=== PATIENT | male | born 1955 | race Caucasian/White ===

== ENCOUNTER → 2017-03-11 | Outpatient (CLI) | payer OTHER ==
[~2017-03-11] MED LIST: AMOXI/CLAVULANA1 TAB PO; CEFEPIME2 GM/100 M IV; COLACE100 MG PO; DIFLUCAN200 MG PO; LANTUS100 U/ML SC; LEVAQUIN750 M1 PO; LEVOFLOXACIN500 MG PO; METRONIDAZOLE500 M1 PO; NOVOLOG FLEX100 U/ML SC; PRAVASTATIN SOD40 MG PO; PROBIOTIC1 EAC1 PO; PROBIOTICS; VANCO-0.9%1.25 GM/25 IV; ZOCOR20 MG PO; ZOSYN 3 GM-0.371 PD1 IV
== END | disposition home or self-care (01) ==
LOC: WOUNDCARE 13:34
DX: E11.621 Type 2 diabetes mellitus with foot ulcer (principal); L97.512 Non-pressure chronic ulcer of other part of right foot with fat layer exposed; I10 Essential (primary) hypertension; Z87.891 Personal history of nicotine dependence; Z86.14 Personal history of Methicillin resistant Staphylococcus aureus infection

== ENCOUNTER → 2017-03-20 | Outpatient (CLI) | payer OTHER | END | disposition home or self-care (01) | LOC: WOUNDCARE 01:54 | DX: E11.621 Type 2 diabetes mellitus with foot ulcer (principal); L97.512 Non-pressure chronic ulcer of other part of right foot with fat layer exposed; I10 Essential (primary) hypertension; Z86.14 Personal history of Methicillin resistant Staphylococcus aureus infection; Z87.891 Personal history of nicotine dependence ==

== ENCOUNTER → 2017-03-27 | Outpatient (CLI) | payer OTHER | END | disposition home or self-care (01) | LOC: WOUNDCARE 11:21 | DX: E11.621 Type 2 diabetes mellitus with foot ulcer (principal); L97.512 Non-pressure chronic ulcer of other part of right foot with fat layer exposed; I10 Essential (primary) hypertension; Z86.14 Personal history of Methicillin resistant Staphylococcus aureus infection; Z87.891 Personal history of nicotine dependence ==

== ENCOUNTER → 2017-04-10 | Outpatient (CLI) | payer OTHER | END | disposition home or self-care (01) | LOC: WOUNDCARE 01:52 | DX: E11.621 Type 2 diabetes mellitus with foot ulcer (principal); L97.512 Non-pressure chronic ulcer of other part of right foot with fat layer exposed; I10 Essential (primary) hypertension; Z87.891 Personal history of nicotine dependence ==

== ENCOUNTER → 2017-05-20 | Outpatient (CLI) | payer OTHER | END | disposition home or self-care (01) | LOC: WOUNDCARE 04:09 | DX: E11.621 Type 2 diabetes mellitus with foot ulcer (principal); L97.511 Non-pressure chronic ulcer of other part of right foot limited to breakdown of skin; I10 Essential (primary) hypertension; E11.9 Type 2 diabetes mellitus without complications; Z86.14 Personal history of Methicillin resistant Staphylococcus aureus infection; Z87.891 Personal history of nicotine dependence ==

== ENCOUNTER → 2017-05-29 | Outpatient (CLI) | payer OTHER | END | disposition home or self-care (01) | LOC: WOUNDCARE 02:03 | DX: E11.621 Type 2 diabetes mellitus with foot ulcer (principal); L97.511 Non-pressure chronic ulcer of other part of right foot limited to breakdown of skin; I10 Essential (primary) hypertension; Z86.14 Personal history of Methicillin resistant Staphylococcus aureus infection; Z87.891 Personal history of nicotine dependence ==

== ENCOUNTER → 2017-06-12 | Outpatient (CLI) | payer OTHER | END | disposition home or self-care (01) | LOC: WOUNDCARE 08:48 | DX: E10.621 Type 1 diabetes mellitus with foot ulcer (principal); L97.512 Non-pressure chronic ulcer of other part of right foot with fat layer exposed; I10 Essential (primary) hypertension; Z86.14 Personal history of Methicillin resistant Staphylococcus aureus infection; Z87.891 Personal history of nicotine dependence ==

== ENCOUNTER → 2017-06-19 | Outpatient (CLI) | payer OTHER | END | disposition home or self-care (01) | LOC: WOUNDCARE 03:39 | DX: E11.621 Type 2 diabetes mellitus with foot ulcer (principal); L97.511 Non-pressure chronic ulcer of other part of right foot limited to breakdown of skin; I10 Essential (primary) hypertension; Z86.14 Personal history of Methicillin resistant Staphylococcus aureus infection; Z87.891 Personal history of nicotine dependence ==

== ENCOUNTER → 2017-07-03 | Outpatient (CLI) | payer OTHER | END | disposition home or self-care (01) | LOC: WOUNDCARE 02:42 | DX: E10.621 Type 1 diabetes mellitus with foot ulcer (principal); L97.512 Non-pressure chronic ulcer of other part of right foot with fat layer exposed; I10 Essential (primary) hypertension; Z87.891 Personal history of nicotine dependence ==

== ENCOUNTER → 2017-07-17 | Outpatient (CLI) | payer OTHER | END | disposition home or self-care (01) | LOC: WOUNDCARE 02:14 | DX: E10.621 Type 1 diabetes mellitus with foot ulcer (principal); L97.511 Non-pressure chronic ulcer of other part of right foot limited to breakdown of skin; I10 Essential (primary) hypertension; Z87.891 Personal history of nicotine dependence ==

== ENCOUNTER → 2017-07-31 | Outpatient (CLI) | payer OTHER | END | disposition home or self-care (01) | LOC: WOUNDCARE 01:40 | DX: E10.621 Type 1 diabetes mellitus with foot ulcer (principal); L97.512 Non-pressure chronic ulcer of other part of right foot with fat layer exposed; I10 Essential (primary) hypertension; Z87.891 Personal history of nicotine dependence ==

== ENCOUNTER → 2017-08-07 | Outpatient (CLI) | payer OTHER | END | disposition home or self-care (01) | LOC: WOUNDCARE 00:24 | DX: E10.621 Type 1 diabetes mellitus with foot ulcer (principal); L97.512 Non-pressure chronic ulcer of other part of right foot with fat layer exposed; I10 Essential (primary) hypertension; Z87.891 Personal history of nicotine dependence ==

== ENCOUNTER → 2017-08-14 | Outpatient (CLI) | payer OTHER | END | disposition home or self-care (01) | LOC: WOUNDCARE 04:39 | DX: E10.621 Type 1 diabetes mellitus with foot ulcer (principal); L97.511 Non-pressure chronic ulcer of other part of right foot limited to breakdown of skin; I10 Essential (primary) hypertension; Z87.891 Personal history of nicotine dependence ==

== ENCOUNTER → 2017-08-26 | Outpatient (CLI) | payer OTHER | END | disposition home or self-care (01) | LOC: WOUNDCARE 02:39 | DX: E11.621 Type 2 diabetes mellitus with foot ulcer (principal); L97.512 Non-pressure chronic ulcer of other part of right foot with fat layer exposed; I10 Essential (primary) hypertension; Z87.891 Personal history of nicotine dependence ==

== ENCOUNTER → 2017-09-09 | Outpatient (CLI) | payer OTHER | END | disposition home or self-care (01) | LOC: WOUNDCARE 01:26 | DX: E10.621 Type 1 diabetes mellitus with foot ulcer (principal); L97.511 Non-pressure chronic ulcer of other part of right foot limited to breakdown of skin; I10 Essential (primary) hypertension; Z87.891 Personal history of nicotine dependence ==

== ENCOUNTER → 2017-09-16 | Outpatient (CLI) | payer OTHER | END | disposition home or self-care (01) | LOC: WOUNDCARE 04:35 | DX: E10.621 Type 1 diabetes mellitus with foot ulcer (principal); L97.512 Non-pressure chronic ulcer of other part of right foot with fat layer exposed; I10 Essential (primary) hypertension; Z87.891 Personal history of nicotine dependence ==

== ENCOUNTER → 2017-09-23 | Outpatient (CLI) | payer OTHER | END | disposition home or self-care (01) | LOC: WOUNDCARE 04:37 | DX: E11.621 Type 2 diabetes mellitus with foot ulcer (principal); L97.512 Non-pressure chronic ulcer of other part of right foot with fat layer exposed; I10 Essential (primary) hypertension; Z87.891 Personal history of nicotine dependence ==

== ENCOUNTER → 2017-09-30 | Outpatient (CLI) | payer OTHER | END | disposition home or self-care (01) | LOC: WOUNDCARE 00:32 | DX: E11.621 Type 2 diabetes mellitus with foot ulcer (principal); L97.511 Non-pressure chronic ulcer of other part of right foot limited to breakdown of skin; Z87.891 Personal history of nicotine dependence ==

== ENCOUNTER → 2017-10-07 | Outpatient (CLI) | payer OTHER | END | disposition home or self-care (01) | LOC: WOUNDCARE 04:43 | DX: E11.621 Type 2 diabetes mellitus with foot ulcer (principal); L97.511 Non-pressure chronic ulcer of other part of right foot limited to breakdown of skin; I10 Essential (primary) hypertension; Z87.891 Personal history of nicotine dependence ==

== ENCOUNTER → 2017-10-14 | Outpatient (CLI) | payer OTHER | END | disposition home or self-care (01) | LOC: WOUNDCARE 00:12 | DX: E10.621 Type 1 diabetes mellitus with foot ulcer (principal); L97.512 Non-pressure chronic ulcer of other part of right foot with fat layer exposed; I10 Essential (primary) hypertension; Z87.891 Personal history of nicotine dependence ==

== ENCOUNTER → 2017-10-21 | Outpatient (CLI) | payer OTHER | END | disposition home or self-care (01) | LOC: WOUNDCARE 03:19 | DX: E11.621 Type 2 diabetes mellitus with foot ulcer (principal); L97.512 Non-pressure chronic ulcer of other part of right foot with fat layer exposed; I10 Essential (primary) hypertension; Z87.891 Personal history of nicotine dependence ==

== ENCOUNTER → 2017-10-28 | Outpatient (CLI) | payer OTHER | END | disposition home or self-care (01) | LOC: WOUNDCARE 03:32 | DX: E10.621 Type 1 diabetes mellitus with foot ulcer (principal); L98.498 Non-pressure chronic ulcer of skin of other sites with other specified severity; L84 Corns and callosities; I10 Essential (primary) hypertension; Z87.891 Personal history of nicotine dependence ==

== ENCOUNTER 2022-09-10 14:21 | Emergency (ER) | payer MEDICARE ==
[~2022-09-10] VITALS: Ht 185.4 cm; Wt 142.9 kg
[2022-09-10 15:05] LABS: BASO % 0.4 % (0.0-1.0); EOS # 0.2 10*3/uL (0.0-0.4); EOS % 2.8 % (1.0-4.0); HEMATOCRIT 41.6 % (42.0-52.0); LYMPH # 1.2 10*3/uL (1.3-4.4); LYMPH % 18.1 % (27.0-41.0); MEAN CELL VOLUME 91.6 fl (80.0-94.0); MEAN CORPUSCULAR HGB 29.7 pg (27.0-31.0); MEAN CORPUSCULAR HGB CONC 32.5 g/dl (33.0-37.0); MONO # 0.7 10*3/uL (0.1-1.0); MONO % 10.9 % (3.0-9.0); NEUT # 4.6 10*3/uL (2.3-7.9); NEUT % 67.7 % (47.0-73.0); PLATELET COUNT AUTOMATED 203 10*3/uL (130-400); RED BLOOD COUNT 4.54 10*6/uL (4.50-5.90); RED CELL DISTRI WIDTH 13.6 % (0-14.5); WHITE BLOOD COUNT 6.8 10*3/uL (4.8-10.8)
[2022-09-10 15:29] LABS: ALKALINE PHOSPHATASE 97 U/L (46-116); BUN 13 mg/dl (9-23); CHLORIDE 98 mmol/L (98-107); POTASSIUM 4.3 mmol/L (3.4-5.1); SGPT/ALT 23 U/L (10-49); TOTAL PROTEIN 6.8 gm/dL (6.0-8.0)
[2022-09-10] MEDS ORDERED: K-TAB10 MEQ PO (16:37)
[2022-09-10] MEDS ORDERED: LASIX40 MG PO (16:37)
[2022-09-10] MEDS ORDERED: CEPHALEXIN500 M1 PO (16:37)
== END 2022-09-10 16:43 | disposition home or self-care (01) ==
LOC: ED 14:21
PROVIDERS: Internal Medicine
DX: R60.0 Localized edema (principal); I50.9 Heart failure, unspecified; E11.9 Type 2 diabetes mellitus without complications; Z98.890 Other specified postprocedural states; F17.210 Nicotine dependence, cigarettes, uncomplicated

== ENCOUNTER 2022-10-30 06:51 | Inpatient (IN) | payer MEDICARE ==
[2022-10-30] VITALS (7 sets, daily range): BP systolic 132–142; BP diastolic 70–100
[~2022-10-30] VITALS: Ht 185.4 cm; Wt 143.1 kg
[~2022-10-30 06:51] MED LIST changes: +CEPHALEXIN500 M1 PO; +K-TAB10 MEQ PO; +LASIX40 MG PO
[2022-10-30 07:26] LABS: BASO % 0.5 % (0.0-1.0); EOS # 0.2 10*3/uL (0.0-0.4); HEMATOCRIT 42.2 % (42.0-52.0); LYMPH # 1.4 10*3/uL (1.3-4.4); LYMPH % 16.5 % (27.0-41.0); MEAN CELL VOLUME 89.2 fl (80.0-94.0); MEAN CORPUSCULAR HGB 29.2 pg (27.0-31.0); MEAN CORPUSCULAR HGB CONC 32.7 g/dl (33.0-37.0); MEAN PLATELET VOLUME 10.6 fl (9.6-12.3); MONO # 0.5 10*3/uL (0.1-1.0); MONO % 6.2 % (3.0-9.0); NEUT # 6.3 10*3/uL (2.3-7.9); NEUT % 74.4 % (47.0-73.0); PLATELET COUNT AUTOMATED 195 10*3/uL (130-400); RED BLOOD COUNT 4.73 10*6/uL (4.50-5.90); RED CELL DISTRI WIDTH 13.6 % (0-14.5); WHITE BLOOD COUNT 8.4 10*3/uL (4.8-10.8)
[2022-10-30 07:37] LABS: ACT PARTIAL THROMBO TIME 30.7 SECONDS (20.0-32.1); INTERNATIONAL NORM RATIO 1.1 (2.0-3.5)
[2022-10-30 07:49] LABS: ALKALINE PHOSPHATASE 96 U/L (46-116); BUN 16 mg/dl (9-23); CHLORIDE 101 mmol/L (98-107); LIPASE 42 U/L (12-53); POTASSIUM 4.2 mmol/L (3.4-5.1); SGPT/ALT 20 U/L (10-49); TOTAL PROTEIN 6.7 gm/dL (6.0-8.0)
[2022-10-30] MEDS ORDERED: FUROSEMIDE20 M1 PO (09:20)
[2022-10-30] MEDS ORDERED: POTASSIUM CHLO10 ME5 PO (09:21)
[2022-10-30] MEDS ORDERED: Lopressor25 MG PO (09:22)
[2022-10-30] MEDS ORDERED: SIMVASTATIN20 MG PO (09:22)
[2022-10-30] MEDS ORDERED: LASIX20 MG PO ×2 (09:27→20:35)
[2022-10-30] MEDS ORDERED: MULTI-VITAMIN1 EACH PO (20:23)
[2022-10-30] MEDS ORDERED: IRBESARTAN300 M1 PO (20:23)
[2022-10-30] MEDS ORDERED: K-TAB10 MEQ PO (20:35)
[2022-10-31] VITALS: BP 117/80
[2022-10-31 06:17] LABS: BASO # 0.1 10*3/uL (0.0-0.1); BASO % 0.6 % (0.0-1.0); EOS # 0.3 10*3/uL (0.0-0.4); EOS % 2.9 % (1.0-4.0); HEMATOCRIT 42.4 % (42.0-52.0); LYMPH # 1.8 10*3/uL (1.3-4.4); LYMPH % 20.4 % (27.0-41.0); MEAN CELL VOLUME 88.1 fl (80.0-94.0); MEAN CORPUSCULAR HGB 29.3 pg (27.0-31.0); MEAN CORPUSCULAR HGB CONC 33.3 g/dl (33.0-37.0); MEAN PLATELET VOLUME 10.6 fl (9.6-12.3); MONO # 0.9 10*3/uL (0.1-1.0); MONO % 9.8 % (3.0-9.0); NEUT # 5.9 10*3/uL (2.3-7.9); NEUT % 66.1 % (47.0-73.0); PLATELET COUNT AUTOMATED 218 10*3/uL (130-400); RED BLOOD COUNT 4.81 10*6/uL (4.50-5.90); RED CELL DISTRI WIDTH 13.6 % (0-14.5); WHITE BLOOD COUNT 8.9 10*3/uL (4.8-10.8)
[2022-10-31 06:33] LABS: ALKALINE PHOSPHATASE 90 U/L (46-116); BUN 16 mg/dl (9-23); CHLORIDE 100 mmol/L (98-107); POTASSIUM 4.1 mmol/L (3.4-5.1); SGPT/ALT 20 U/L (10-49); TOTAL PROTEIN 6.8 gm/dL (6.0-8.0)
[2022-10-31 08:00] VITALS: BP 134/80
[2022-10-31 12:00] VITALS: BP 142/77
[2022-10-31 15:41] VITALS: BP 139/80
[2022-10-31 20:00] VITALS: BP 118/74
[2022-11-01] VITALS: BP 133/72
[2022-11-01 06:16] LABS: BASO % 0.5 % (0.0-1.0); EOS # 0.3 10*3/uL (0.0-0.4); EOS % 3.7 % (1.0-4.0); HEMATOCRIT 40.3 % (42.0-52.0); LYMPH # 1.6 10*3/uL (1.3-4.4); LYMPH % 20.6 % (27.0-41.0); MEAN CELL VOLUME 90.4 fl (80.0-94.0); MEAN CORPUSCULAR HGB 29.4 pg (27.0-31.0); MEAN CORPUSCULAR HGB CONC 32.5 g/dl (33.0-37.0); MEAN PLATELET VOLUME 10.2 fl (9.6-12.3); MONO % 13.4 % (3.0-9.0); NEUT # 4.8 10*3/uL (2.3-7.9); NEUT % 61.5 % (47.0-73.0); PLATELET COUNT AUTOMATED 178 10*3/uL (130-400); RED BLOOD COUNT 4.46 10*6/uL (4.50-5.90); RED CELL DISTRI WIDTH 13.6 % (0-14.5); WHITE BLOOD COUNT 7.8 10*3/uL (4.8-10.8)
[2022-11-01 06:36] LABS: BUN 16 mg/dl (9-23); CHLORIDE 100 mmol/L (98-107); POTASSIUM 3.8 mmol/L (3.4-5.1)
[2022-11-01 08:00] VITALS: BP 117/73
[2022-11-01 12:00] VITALS: BP 121/76
[2022-11-01] MEDS ORDERED: AVAPRO150 M1 PO (12:19)
[2022-11-01] MEDS ORDERED: JARDIANCE10 MG PO (12:19)
[2022-11-01] MEDS ORDERED: SOAANZ20 M1 PO (12:19)
[2022-11-01] MEDS ORDERED: METOPROLOL SUCC25 M2 PO (12:19)
[2022-11-01] MEDS ORDERED: K-TAB10 MEQ PO (12:19)
[2022-11-01] MEDS ORDERED: ANTIVERT25 M2 PO (15:56)
== END 2022-11-01 15:48 | disposition home or self-care (01) | DRG 291 ==
LOC: ED 06:51 → EDHOLD 09:20 → 4E 09:20 → EDHOLD 09:27 → 4E 18:31
PROVIDERS: Emergency Medicine; Internal Medicine; Student in an Organized Health Care Education/Training Program; ADMIT Student in an Organized Health Care Education/Training Program; ATTEND Student in an Organized Health Care Education/Training Program
PROC: 0JBR3ZZ Excision of Left Foot Subcutaneous Tissue and Fascia, Percutaneous Approach (ICD-10-PCS; principal; 2022-10-31)
DX: I13.0 Hypertensive heart and chronic kidney disease with heart failure and stage 1 through stage 4 chronic kidney disease, or unspecified chronic kidney disease (principal); I50.43 Acute on chronic combined systolic (congestive) and diastolic (congestive) heart failure; E44.1 Mild protein-calorie malnutrition; E87.1 Hypo-osmolality and hyponatremia; Z68.41 Body mass index [BMI] 40.0-44.9, adult; I45.2 Bifascicular block; E11.42 Type 2 diabetes mellitus with diabetic polyneuropathy; E11.65 Type 2 diabetes mellitus with hyperglycemia; E66.01 Morbid (severe) obesity due to excess calories; R42 Dizziness and giddiness; E78.5 Hyperlipidemia, unspecified; N18.31 Chronic kidney disease, stage 3a; G47.33 Obstructive sleep apnea (adult) (pediatric); D64.9 Anemia, unspecified; E11.22 Type 2 diabetes mellitus with diabetic chronic kidney disease; Z79.4 Long term (current) use of insulin; Z82.49 Family history of ischemic heart disease and other diseases of the circulatory system; Z83.3 Family history of diabetes mellitus; Z82.0 Family history of epilepsy and other diseases of the nervous system

== ENCOUNTER → 2022-11-25 | Outpatient (CLI) | payer MEDICARE ==
[~2022-11-25] MED LIST changes: +ANTIVERT25 M2 PO; +AVAPRO150 M1 PO; +FUROSEMIDE20 M1 PO; +IRBESARTAN300 M1 PO; +JARDIANCE10 MG PO; +LASIX20 MG PO; +Lopressor25 MG PO; +METOPROLOL SUCC25 M2 PO; +MULTI-VITAMIN1 EACH PO; +POTASSIUM CHLO10 ME5 PO; +SIMVASTATIN20 MG PO; +SOAANZ20 M1 PO
[2022-11-25 10:19] LABS: HEMATOCRIT 47.2 % (42.0-52.0)
[2022-11-25 10:44] LABS: POTASSIUM 4.9 mmol/L (3.4-5.1)
== END | disposition home or self-care (01) ==
LOC: LAB 09:50
PROVIDERS: ATTEND Internal Medicine Cardiovascular Disease
DX: I50.20 Unspecified systolic (congestive) heart failure (principal); E11.9 Type 2 diabetes mellitus without complications

== ENCOUNTER 2023-01-01 23:36 | Emergency (ER) | payer MEDICARE ==
[~2023-01-01] VITALS: Ht 185.4 cm; Wt 131.2 kg
[2023-01-02 00:22] LABS: BASO % 0.3 % (0.0-1.0); EOS # 0.3 10*3/uL (0.0-0.4); EOS % 5.3 % (1.0-4.0); HEMATOCRIT 28.4 % (42.0-52.0); LYMPH % 15.4 % (27.0-41.0); MEAN CORPUSCULAR HGB 30.6 pg (27.0-31.0); MEAN CORPUSCULAR HGB CONC 30.6 g/dl (33.0-37.0); MEAN PLATELET VOLUME 9.1 fl (9.6-12.3); MONO % 15.1 % (3.0-9.0); NEUT # 4.1 10*3/uL (2.3-7.9); NEUT % 63.6 % (47.0-73.0); PLATELET COUNT AUTOMATED 292 10*3/uL (130-400); RED BLOOD COUNT 2.84 10*6/uL (4.50-5.90); RED CELL DISTRI WIDTH 16.7 % (0-14.5); WHITE BLOOD COUNT 6.4 10*3/uL (4.8-10.8)
[2023-01-02 00:34] LABS: ACT PARTIAL THROMBO TIME 32.5 SECONDS (20.0-32.1); INTERNATIONAL NORM RATIO 1.1 (2.0-3.5)
[2023-01-02 00:44] LABS: ALKALINE PHOSPHATASE 126 U/L (46-116); BUN 15 mg/dl (9-23); CHLORIDE 99 mmol/L (98-107); LIPASE 26 U/L (12-53); POTASSIUM 4.5 mmol/L (3.4-5.1); SGPT/ALT 19 U/L (10-49); TOTAL PROTEIN 5.8 gm/dL (6.0-8.0)
[2023-01-02] MEDS ORDERED: ASPIRIN CHEWABL81 MG PO (01:20)
[2023-01-02] MEDS ORDERED: VITAMIN C500 M8 PO (01:20)
[2023-01-02] MEDS ORDERED: CARVEDILOL3.125 MG PO (01:21)
[2023-01-02] MEDS ORDERED: ATORVASTATIN CA40 M1 PO (01:21)
[2023-01-02] MEDS ORDERED: FUROSEMIDE40 MG PO (01:22)
[2023-01-02] MEDS ORDERED: [UNRECOGNIZED DRUG - OTHER] SC (01:24)
[2023-01-02] MEDS ORDERED: HUMALOG100 UNIT/1 SC (01:25)
[2023-01-02] MEDS ORDERED: HYDROXYZINE HCL25 MG PO (01:26)
[2023-01-02] MEDS ORDERED: Ipratropium Brom3 ML INH (01:27)
[2023-01-02] MEDS ORDERED: OXYCODONE HCL5 MG PO (01:28)
[2023-01-02] MEDS ORDERED: POTASSIUM CHLO20 ME3 PO (01:28)
[2023-01-02] MEDS ORDERED: ZINC-22050 MG PO (01:29)
[2023-01-02] MEDS ORDERED: MICONAZOLE NIT130 GM T (01:33)
[2023-01-02 03:26] LABS: BILIRUBIN Negative (Negative); BLOOD 3+ (Negative); CLARITY Cloudy (Clear); COLOR Dark Yellow (Yellow); GLUCOSE Negative (Negative); KETONE Trace (Negative); LEUKO ESTERASE 3+ (Negative); NITRITE Positive (Negative); SPECIFIC GRAVITY 1.015 (1.001-1.030)
[2023-01-02 03:38] LABS: RBC 41-50 rbc/hpf (0-2); WBC 41-50 wbc/hpf (0-5)
[2023-01-02 03:39] LABS: BACTERIA 3+
== END 2023-01-02 04:23 | disposition short-term general hospital (02) ==
LOC: ED 23:36
PROVIDERS: Internal Medicine
DX: T81.49XA Infection following a procedure, other surgical site, initial encounter (principal); J22 Unspecified acute lower respiratory infection; R11.0 Nausea; R42 Dizziness and giddiness; I11.0 Hypertensive heart disease with heart failure; I50.9 Heart failure, unspecified; E11.9 Type 2 diabetes mellitus without complications; I25.10 Atherosclerotic heart disease of native coronary artery without angina pectoris; Z20.822 Contact with and (suspected) exposure to COVID-19; Z79.899 Other long term (current) drug therapy; Z88.8 Allergy status to other drugs, medicaments and biological substances; Z98.890 Other specified postprocedural states; F10.10 Alcohol abuse, uncomplicated; Z87.891 Personal history of nicotine dependence